=== PATIENT | male | born 2000 | race Caucasian/White ===

== ENCOUNTER 2021-10-02 13:25 | Emergency (ER) | payer BC ==
[~2021-10-02] VITALS: Ht 165.1 cm; Wt 70.0 kg
[2021-10-02 13:28] VITALS: BP 130/79
[2021-10-02 14:17] LABS: HEMATOCRIT. 46.4 % (42.0-52.0); HEMOGLOBIN. 15.9 g/dL (14.0-18.0); MEAN CORPUSCULAR HEMOGLOBIN 29.4 pg (28.0-32.0); MEAN PLATELET VOLUME 9.7 fl (7.4-10.4); PLATELET 201 x1000/uL (130-400); RED CELL DISTRIBUTION WIDTH 13.4 % (11.6-14.6)
[2021-10-02 14:30] LABS: CHLORIDE 105 mEq/L (98-107)
[2021-10-02 14:41] LABS: ETHANOL BLOOD < 10 mg/dL
[2021-10-02 15:11] LABS: PLATELET ESTIMATE NORMAL
== END 2021-10-02 18:03 | disposition left against medical advice (07) ==
LOC: ER 13:25
DX: Z53.21 Procedure and treatment not carried out due to patient leaving prior to being seen by health care provider (principal)
CPT/HCPCS: 36415; 71045; 80053; 80320; 84484; 85025; 93005; 99285; G0480